=== PATIENT | female | born 1965 | race Caucasian/White ===

== ENCOUNTER 2025-07-13 08:32 | Emergency (ER) | payer MEDICAID ==
[~2025-07-13] VITALS: Ht 157.5 cm; Wt 92.2 kg
[2025-07-13 08:50] VITALS: TEMP 97.9
[2025-07-13 09:47] LABS: MEAN PLATELET VOLUME 9.0 FL (7.4-10.4); RED CELL DISTRIBUTION WIDTH 13.7 % (11.5-14.5)
[2025-07-13 09:56] LABS: LEUKOCYTE ESTERASE ,URINE TRACE (Neg); NITRITES, URINE NEGATIVE (Neg); OCCULT BLOOD,URINE LARGE (Neg)
[2025-07-13 10:06] LABS: UA COLLECTION TYPE CLN CATCH MIDSTREAM
[2025-07-13 10:09] LABS: MUCUS STRANDS FEW /LPF (Neg); SQUAMOUS EPITHELIAL CELL,UR MODERATE /LPF (FEW)
[2025-07-13 10:12] LABS: CREATININE 0.92 MG/DL (0.40-0.90); TOTAL CARBON DIOXIDE 24.4 MMOL/L (24-32); eCRCL 51 ML/MIN; eGFR 62 ML/MIN
--- NOTE | 2025-07-13 10:30 | Physician Documentation ---
History of Present Illness General Chief Complaint: Flank Pain Stated Complaint: MULTIPLE MED COMPLAINTS Time Seen by MD: 10:15 Primary Medical Doctor: none Mode of Arrival: POV History of Present Illness Initial Comments The patient is a 59-year-old female with no significant past medical history who woke up this morning with severe left flank pain. She vomited once (blood- tinged). At this time the pain has improved spontaneously. No recent history of UTIs. Medication Reconciliation Allergies: Coded Allergies: No Known Allergies (Unverified , 07/13/25) Review of Systems ROS Constitutional: Denies chills, fatigue, fever, weight gain or weight loss. HEENT: Denies hearing loss, sinus pressure or visual changes. Respiratory: Denies cough, shortness of breath or wheezing. Cardiovascular: Denies chest pain, pain while walking (claudication), edema or palpitations. Gastrointestinal: Denies abdominal pain, blood in stool, constipation, diarrhea, heartburn, loss of appetite, nausea or vomiting. Genitourinary: Left flank pain. Metabolic/Endocrine: Denies cold intolerance, heat intolerance, excessive thirst (polydipsia) or excessive hunger (polyphagia). Neurological: Denies dizziness, extremity numbness, extremity weakness, headaches, seizures or tremors. Psychiatric: Denies anxiety or depression. Integumentary: Denies breast discharge, breast lump, hives, mole change(s), rash or skin lesion. Musculoskeletal: Denies back pain, joint pain, joint swelling or neck pain. Hematologic: Denies easily bleeding, easily bruises, lymphedema or issues with blood clots. Immunologic: Denies food allergies or seasonal allergies. Physical Exam Physical Exam Vital Signs: Temperature: 97.9, Source: Temporal, Heart Rate: 85, Respiratory Rate: 22, BP: 126/71, Pulse Oximetry: 99, Weight: 92.200 Oxygen Flow Rate: 0 Physical Exam Physical Exam Vitals and nursing note reviewed. Constitutional: General: Patient is awake, alert, oriented x 4 in no acute distress and well appearing. Speech is clear and lucid. Appearance: Normal appearance. Patient is not ill-appearing, toxic-appearing or diaphoretic. HENT: Head: Normocephalic and atraumatic. Mouth/Throat: Mouth: Mucous membranes are moist. Pharynx: Oropharynx is clear. Eyes: General: No scleral icterus. Extraocular Movements: Extraocular movements intact. Pupils: Pupils are equal, round, and reactive to light. Neck: Supple, no Kernig or Brudzinski sign. Cardiovascular: Rate and Rhythm: Normal rate and regular rhythm. Heart sounds: No murmur heard. Pulmonary: Effort: No respiratory distress. Breath sounds: No wheezing, rhonchi or rales. Abdominal: General: There is no distension. Palpations: There is no fluid wave, hepatomegaly or mass. Tenderness: There is no abdominal tenderness. There is no guarding. Musculoskeletal: General: No swelling or deformity. Skin: Coloration: Skin is not jaundiced. Findings: No erythema or rash. Neurological: Mental Status: Patient is alert. Progress Results/Orders Results/Orders Orders - RASHI MAHAN MD Cult Urine + [place] Ct (07/13/25 10:11) Ct Abdomen Pelvis (07/13/25 10:41) Completed Orders - RASHI MAHAN MD Cbc/Diff (07/13/25 08:53) Lipase (07/13/25 08:53) CMP (07/13/25 08:53) Ua W/Microscopic, Cult If Ind (07/13/25 09:44) Ct Abdomen Pelvis (07/13/25 10:41) Vital Signs 07/13/25 07/13/25 07/13/25 07/13/25 08:50 09:10 10:51 12:55 Temp 97.9 Pulse 85 77 78 Resp 22 16 16 B/P (MAP) 126/71 128/80 (96) 124/79 (94) Pulse Ox 99 96 97 O2 Flow Rate 0 0 0 Laboratory Tests Test 07/13/25 09:16 07/13/25 09:44 White Blood Count 10.5 Red Blood Count 4.76 Hemoglobin 14.6 Hematocrit 43.2 Mean Corpuscular Volume 90.9 Mean Corpuscular Hemoglobin 30.6 Mean Corpuscular Hemoglobin Concent 33.7 Red Cell Distribution Width 13.7 Platelet Count 313 Mean Platelet Volume 9.0 Neutrophils (%) (Auto) 78.3 H Lymphocytes (%) (Auto) 17.1 L Monocytes (%) (Auto) 3.6 Eosinophils (%) (Auto) 0.7 Basophils (%) (Auto) 0.3 Neutrophils # (Auto) 8.2 H Lymphocytes # (Auto) 1.8 Monocytes # (Auto) 0.4 Eosinophils # (Auto) 0.1 Basophils # (Auto) 0.0 CBC Comment Sodium Level 143 Potassium Level 3.7 Chloride Level 106 Carbon Dioxide Level 24.4 Anion Gap 13 Blood Urea Nitrogen 14 Creatinine 0.92 H Estimated GFR/1.73 m2 62 BUN/Creatinine Ratio 15.2 Glucose Level 135 H Calcium Level 9.4 Total Bilirubin 0.5 Aspartate Amino Transf (AST/SGOT) 41 H Alanine Aminotransferase (ALT/SGPT) 66 Alkaline Phosphatase 89 Total Protein 7.7 Albumin 3.6 Globulin 4.1 Albumin/Globulin Ratio 0.9 L Lipase 52 Chemistry Comments Urine Specimen Description Cln catch midstream Urine Color Dark yellow Urine Clarity Cloudy Urine pH 7.0 Urine Specific [place] Part 1.025 Urine Protein 100 H Urine Glucose (UA) Negative Urine Ketones Trace H Urine Occult Blood Large H Urine Nitrite Negative Urine Bilirubin Small Urine Urobilinogen 0.2 Urine Leukocyte Esterase Trace H Urine RBC Tntc Urine WBC 5-10 H Urine Squamous Epithelial Cells Moderate Urine Transitional Epithelial Cells Few Urine Bacteria 2+ Urine Mucus Few Urine Culture Indicated Indicated Volume Urine Centrifuged 10 ml Urine Comment Microbiology Date/Time Source Procedure Growth Status 07/13/25 10:11 Urine Clean Catch Midstream Urine Culture - Preliminary Culture received. Resulted Medical Decision Making Findings This 59-year-old female presented with left-sided flank pain. CT scan shows a 5 mm proximal ureteric stone. I did talk with our urologist on-call, Dr. Jesus (at 1:15 p.m.) any asked me to discharge the patient with follow-up in the urology clinic. Prescribing analgesics. Departure Disposition: HOME / SELF CARE / HOMELESS Impression: Primary Impression: Ureterolithiasis Referrals: PARK JESUS MD Prescriptions Oxycodone HCl/Acetaminophen (Percocet 5-325 mg Tablet) 5 Mg-325 Mg Tablet 1 TABLET PO Q4H PRN for pain, #15 TABLET Prov: RASHI MAHAN MD 07/13/25 ONDANSETRON ODT 4mg tablet (ONDANSETRON ODT) 4 Mg Tab.rapdis 1 TAB PO Q6H PRN PRN for nausea/vomiting for 4 Days, #16 TAB 0 Refills Prov: RASHI MAHAN MD 07/13/25 Signature Scribe Signature: . Attestation: . RASHI MAHAN MD Jul 13, 2025 10:30
--- NOTE | 2025-07-13 11:29 | RADIOLOGY REPORT ---
Indication: Stone study Technique: CT axial images of the abdomen and pelvis are obtained without contrast. Coronal and sagittal reformats were obtained. Radiation Dose Information: CTDI volume is 30 mGy. Dose-length product is 1495 mGy*cm Comparison: None FINDINGS: There is limited interpretation of the abdomen and pelvis without administration of intravenous contrast. Lung bases demonstrate atelectasis Adrenal glands, spleen, pancreas unremarkable in shape. Hepatic steatosis gallbladder contracted. The right kidney demonstrates no hydronephrosis/nephrolithiasis. The left kidney demonstrates mild hydroureteronephrosis secondary to a proximal left ureteral calculus measuring 5 mm. Small hiatal hernia. Stomach is partially distended. Duodenal diverticulum. Small bowel loops are normal in caliber. Colonic diverticular disease. Moderate volume stool in the colon. Normal appendix. Bladder partially distended. No free pelvic fluid. No inguinal lymphadenopathy. Zaza-ws-gdmieity thoracolumbar degenerative disc disease IMPRESSION: Limited evaluation without contrast. Tmee-tj-soprjnme hydroureteronephrosis secondary to a proximal ureteral calculus measuring 5 mm. Colonic diverticular disease. Hepatic steatosis. Hiatal hernia. Other findings as described
[2025-07-13] MEDS ORDERED: ONDA-243 PO (13:25)
[2025-07-13] MEDS ORDERED: OXYC-145 PO (13:25)
[2025-07-13] MEDS: ketorolac trometh 30MG/ML vial 30 MG/ML VIAL IV ONE (13:53)
[2025-07-13 14:02] VITALS: BP 150/93; PULSE 73; RESP 16; O2SAT 97
== END 2025-07-13 14:04 | disposition home or self-care (01) ==
LOC: ER 08:33
DX: N20.1 Calculus of ureter (principal)
CPT/HCPCS: 36415; 74176; 80053; 81001; 83690; 85025; 87088; 96374; 99285; J1885

== ENCOUNTER 2025-07-25 11:44 | Emergency (ER) | payer MEDICAID ==
[~2025-07-25] VITALS: Ht 157.5 cm; Wt 90.5 kg
[~2025-07-25 11:44] MED LIST: ONDA-243 PO; OXYC-145 PO
[2025-07-25] MEDS ORDERED: ondansetron/PF 4mg/2ml inj IM ONE (12:15)
[2025-07-25] MEDS: normal saline 1000ML IV soln IVB ONE (12:26)
[2025-07-25] MEDS: ondansetron/PF 4mg/2ml inj IV ONE (12:34)
[2025-07-25 12:35] LABS: MEAN PLATELET VOLUME 8.4 FL (7.4-10.4); RED CELL DISTRIBUTION WIDTH 13.6 % (11.5-14.5)
--- NOTE | 2025-07-25 12:35 | Physician Documentation ---
History of Present Illness Chief Complaint: Abdominal Pain w/vomiting Stated Complaint: ABD PAIN/VOMITING Time Seen by : 12:04 OK to notify your PCP?: Yes Primary Medical Doctor: none Mode of Arrival: POV HPI 59-year-old female patient with a significant past medical history who was here on 13 July and diagnosis and treated as renal colic after the CT scan found left renal calculus about 5 mm proximal. She was treated with pain medications. Her UA showed WBC 5 to 10 but it was not treated with antibiotics at that time. She then went to [place] [facility] on 20 of July for the same and a lso with a concern of sepsis and is turned out to be no sepsis. Pain is in the suprapubic area in the lower abdomen. She has been not able to eat good and she cut down amount of food. She also had quite a bit of nausea. Her urine output is diminished. She also taking Colace yesterday and this morning because of constipation. Her mother passed because of urosepsis at the age of 88 and the patient is highly aware of sepsis. Medication Reconciliation Allergies: Coded Allergies: No Known Allergies (Unverified , 07/25/25) Scheduled Levofloxacin (Levofloxacin), 1 TAB PO DAILY Scheduled PRN ONDANSETRON ODT 4mg tablet (Ondansetron Odt), 1 TAB PO Q6H PRN PRN for nausea/vomiting Oxycodone HCl/Acetaminophen (Percocet 5-325 mg Tablet), 1 TABLET PO Q4H PRN for pain Physical Exam Vital Signs: Temperature: 97.6, Source: Temporal, Heart Rate: 97, Respiratory Rate: 16, BP: 117/79, Pulse Oximetry: 97, Weight: 90.500 Oxygen Flow Rate: 0 Progress Results/Orders Results/Orders Orders - ABELARDO BRYAN MD Cbc/Diff (07/25/25 12:14) Lipase (07/25/25 12:14) Urinalysis, Cult If Indicated (07/25/25 12:14) Pt Inr (07/25/25 12:14) Monitor (07/25/25 12:14) Saline Lock (07/25/25 12:14) BMP (07/25/25 12:14) CMP (07/25/25 12:14) Culture Blood (07/25/25 12:27) Procalcitonin (07/25/25 12:27) Lacticsepsis (07/25/25 12:27) Completed Orders - ABELARDO BRYAN MD Ondansetron Inj. (Zofran 4mg/2ml Vial) (07/25/25 12:15) Normal Saline 1000ml (0.9% Sodium Chlori (07/25/25 12:15) Ondansetron Inj. (Zofran 4mg/2ml Vial) (07/25/25 12:30) Medications Received in ER Medications (Trade) Dose Ordered Sig/Lacie Route PRN Reason Start Time Stop Time Status Last Admin Dose Admin (0.9% sodium chloride (NS) 1000ml IV soln) 1,000 ml ONCE ONCE IVB 07/25/25 12:15 07/25/25 12:17 DC 07/25/25 12:26 1,000 ML Vital Signs 07/25/25 07/25/25 07/25/25 11:50 12:07 12:09 Temp 97.6 Pulse 89 97 Resp 19 20 16 B/P (MAP) 125/81 117/79 (92) Pulse Ox 96 97 O2 Flow Rate 0 Laboratory Tests Test 07/25/25 12:24 CBC Comment Coagulation Comments Urine Comment Chemistry Comments Medical Decision Making Findings ER Course/Med. Decision Making REVIEW of RECORD(S): Previous medical records here and/or external medical records, such as that provided directly by the patient, by EMS and/or outside medical facilities, if available, were reviewed. COMORBIDITIES none MDM During the physical examination, the findings suggestive of acute life- threatening condition such as JVD, tracheal deviation, acidotic breathing, noisy stridorous breath sounds, pulses paradoxus, muffled heart sounds, unequal breath sounds, abdominal rigidity and rebound tenderness, focal neurological deficits, cool clammy skin, severe hypotension, severe tachycardia or bradycardia are absent. Patient presenting for concern for the urosepsis. Vital signs reviewed. Patient is hemodynamically stable and does not meet SIRS criteria. Patient appears nontoxic on exam. Physical examination is unremarkable. CBC CMP are well within normal range. Lactic acid is normal. UA showed WBC [address] scan of the abdomen and pelvis without contrast shows no hydronephrosis no urinary calculi. The patient was given levofloxacin 500 mg IV piggyback and now we will be discharged from the emergency room with UTI. TREATMENT/DISPOSITION: The patient's presentation is most consistent with acute urinary tract infection Prior to discharge I independently reviewed the patients past medical history, clinical risk factors, comorbidities, and social determinants of health and diagnostic studies. The patient appears to be a safe discharge home with close outpatient PCP follow-up I had extensive discussion with patient regarding management, disposition and follow up. Potential symptom etiology was discussed, and shared decision making occurred. They will return immediately if symptoms worsen, do not improve, or they have any further concerns. Prior to discharge all questions were addressed. The patient is aware that the purpose of this visit was to screen for an acute medical emergency requiring emergent stabilization. Chronic and occult conditions, including malignancies, have not been ruled out. If patient is unable to arrange follow-up as stated in the discharge instructions and further discussed with the patient directly, or their symptoms worsen/become more concerning, they are to return to the ER for reassessment immediately. Prior to leaving the department, the patient has a plan for discharge, has decision making capacity, and acknowledges an understanding of the verbal and written discharge instructions. SOCIAL DETERMINANTS: Patient demonstrates no obvious challenges to following up as an outpatient although did consider whether patient had any barriers to access care including homelessness, Food insecurity, Mental health, Substance abuse, Disabilities, Limited access to medical care, Difficulty finding transport, Insurance issues, Refusal of care or testing due to cost concerns. MEDICAL SCREENING: I have discussed with the patient the non-definitive nature of the emergency screening exam, diagnosis and the possibility of a variety of conditions which may present in atypically benign fashion and stressed the importance of close follow-up for definitive diagnosis and treatment. We discussed signs and symptoms that should be watched for which might indicate a more serious or new condition that would benefit from emergency reevaluation and the patient has verbalized understanding to this and my other detailed discharge instructions and promises compliance. I have referred him back to his primary p hysician of course for a more detailed evaluation and more definitive diagnoses. DISCLAIMER: Inadvertent spelling and grammatical errors are likely due to EMR/dictation software use and do not reflect on the overall quality of patient care. Note that the electronic time recorded on this note does not necessarily reflect the actual time of the patient encounter. Differential Dx:Considerations: Include: Angina/DC, Bowel obstruction, Cholangitis, Constipation, Diverticular disease, Gastritis/PUD, Hernia, Inflammatory BD, Ischemic bowel, Pancreatitis, Urinary obstruction, Urinary tract infection, Urolithiasis Departure Disposition: 01 HOME / SELF CARE / HOMELESS Impression: Primary Impression: Acute urinary tract infection Discharge Instructions: Urinary Tract Infection, Adult Additional Instructions: Thank you for coming to our Emergency Department today. Please stop taking tamsulosin. Which is also Flomax. Push fluids. Please ask your nurse or provider if you have questions about your care today and do not leave until all your questions have been answered. Please use any medications given as directed and follow-up with your doctor (or the doctor you were referred to) in the next 1-3 days. Your primary care doctor can help to coordinate outpatient specialty care and provide authorization for specialty referral as needed. If you do not have a primary care doctor you may follow up at a [facility]. You may also use motrin and tylenol as needed for fever and/or pain unless instructed otherwise by your provider or nurse. Indications for more urgent follow-up have been discussed, but you may return to the Emergency Department at ANY time for any worrisome or worsening symptoms. County Facilities: [facility] Facilities: [facility]: [facility] [place] Address:[address] [place] [address] [facility]: [place] Address:[address] [place] [address] [facility] Address:[address] [place] [address] [facility] Address:[address] [place] [address] Registration Billing Pharmacy Referrals [facility] Address:[address] [place] [address] Referrals: NO PRIMARY CARE PROVIDER (PCP) Prescriptions Levofloxacin (Levofloxacin) 500 Mg Tablet 1 TAB PO DAILY for 3 Days, #10 TAB Prov: ABELARDO BRYAN MD 07/25/25 Signature Scribe Signature: None Attestation: My dictation ABELARDO BRYAN MD Jul 25, 2025 12:35
[2025-07-25 12:37] LABS: LEUKOCYTE ESTERASE ,URINE NEGATIVE (Neg); NITRITES, URINE NEGATIVE (Neg); OCCULT BLOOD,URINE TRACE-INTACT (Neg)
[2025-07-25 12:44] LABS: UA COLLECTION TYPE CLN CATCH MIDSTREAM
[2025-07-25 12:46] LABS: SQUAMOUS EPITHELIAL CELL,UR MODERATE /LPF (FEW)
[2025-07-25 12:47] LABS: INR 1.0 INR
[2025-07-25 12:48] LABS: MUCUS STRANDS FEW /LPF (Neg)
[2025-07-25 12:51] LABS: CREATININE 0.94 MG/DL (0.40-0.90); TOTAL CARBON DIOXIDE 24.0 MMOL/L (24-32); eCRCL 50 ML/MIN; eGFR 61 ML/MIN
[2025-07-25 13:00] VITALS: TEMP 98.2
[2025-07-25] MEDS: levoFLOXACIN-Levaquin 500mg/D5 100 ML IV ONE (14:37)
[2025-07-25] MEDS: normal saline 1000ml 1,000 ML IV ONE (14:37)
[2025-07-25] MEDS ORDERED: iohexol 300mg/ml 100ml inj. ONE (14:48)
--- NOTE | 2025-07-25 15:13 | ELECTROCARDIOGRAPH REPORT ---
[facility] Test Date: 2025-07-25 Test Time: 12:18:08 Pat Name: DESTINEY LENTZ Department: EMERGENCY ROOM [id number] Room: Gender: F Office Services Clerk: LIDIA : [id number] Requested By: ABELARDO BRYAN Order Number: [id number] Reading MD: Dr. Darrius Pope Measurements Intervals [place] Rate: 81 P: 41 ND: 141 QRS: -21 QRSD: 93 T: 57 QT: 358 QTc: 416 Interpretive Statements Sinus rhythm Ventricular premature complex Borderline left axis deviation Low voltage, precordial leads Borderline T abnormalities, anterior leads Electronically Signed On 07-26-2025 21:40:[address] Darrius Pope Please click the below link to view image of tracing.
--- NOTE | 2025-07-25 15:31 | RADIOLOGY REPORT ---
Exam: CT CT ABDOMEN PELVIS History: Abdominal pain Comparison Study: CT CT ABDOMEN PELVIS on DOS: 07/13/25 TECHNIQUE: Multidetector CT of the abdomen pelvis with IV contrast. Axial, coronal and sagittal multiplanar reformats were obtained from the axial data set by the technologist. Radiation Dose Information: CT Dose: CTDI volume is 27.89 mGy. Dose-length product is 1390.42 mGy*cm FINDINGS: Bibasilar atelectasis. Partially visualized heart is unremarkable. 1.4 cm left hepatic lobe cyst. Mild hepatic steatosis. Spleen, gallbladder, pancreas and adrenal glands are unremarkable. Subcentimeter hypodense bilateral renal lesions that are too small to characterize. The previously noted 5 mm obstructing left proximal ureteral calculus is noted within the distal left ureter with minimal adjacent fat stranding but without significant hydro nephrosis. Otherwise, kidneys, ureters and urinary bladder unremarkable. Uterus is unremarkable. 5 cm right ovarian dominant follicle/ cyst with 2.1 cm left ovarian cyst. Nonspecific air within the vagina. Moderate size hiatal hernia. Mild wall thickening of the herniated and distal stomach with mild Wall thickening of Proximal Small bowel loops. The remainder of the small bowel loops unremarkable. Appendix is unremarkable. Descending colon and sigmoid diverticulosis without diverticulitis. No evidence of intraperitoneal free air or fluid. No evidence of aortic aneurysm or dissection. No significant lymphadenopathy. Soft tissues are unremarkable. No evidence of acute osseous abnormalities. Sclerotic foci within T12, L3 and L5 vertebral bodies which may represent small bone islands. IMPRESSION: The previously noted 5 mm obstructing left proximal ureteral calculus is noted within the distal left ureter with minimal adjacent fat stranding but without significant hydro nephrosis. Moderate size hiatal hernia. Gastroenteritis. Subcentimeter hypodense bilateral renal lesions that are too small to characterize. Colonic diverticulosis without diverticulitis.
[2025-07-25] MEDS ORDERED: LEVO-65 PO (16:22)
[2025-07-25 16:39] VITALS: BP 114/75; PULSE 82; RESP 18; O2SAT 97
== END 2025-07-25 16:44 | disposition home or self-care (01) ==
LOC: ER 11:45
DX: N39.0 Urinary tract infection, site not specified (principal); Z87.442 Personal history of urinary calculi
CPT/HCPCS: 36415; 74177; 80053; 81001; 83605; 83690; 84145; 85025; 85610; 87040; 87088; 93005; 96361; 96365; 96375; 99285; J1956; J2405; J7030; Q9967

== ENCOUNTER 2025-08-15 17:56 | Emergency (ER) | payer MEDICAID ==
[~2025-08-15] VITALS: Ht 157.5 cm; Wt 84.5 kg
[2025-08-15 18:54] LABS: MEAN PLATELET VOLUME 8.9 FL (7.4-10.4); RED CELL DISTRIBUTION WIDTH 13.7 % (11.5-14.5)
--- NOTE | 2025-08-15 19:08 | Physician Documentation ---
History of Present Illness Chief Complaint: Flank Pain Stated Complaint: GROIN/BACK PAIN Primary Medical Doctor: none HPI This is a 59-year-old female who presents with left flank pain radiating to left pelvis, patient reports history of treatments for UTI and kidney stone in the [place]. Patient reports no fever. States this feels like a kidney stone Medication Reconciliation Allergies: Coded Allergies: No Known Allergies (Unverified , 08/15/25) Scheduled PRN ONDANSETRON ODT 4mg tablet (Ondansetron Odt), 1 TAB PO Q6H PRN PRN for nausea/vomiting Oxycodone HCl/Acetaminophen (Percocet 5-325 mg Tablet), 1 TABLET PO Q4H PRN for pain Past Medical History Past Medical History: Kidney Stones, UTI Review of Systems ROS As stated above in the HPI, otherwise all systems are reviewed and negative. Physical Exam Vital Signs: Temperature: 97.9, Source: Temporal, Heart Rate: 99, Respiratory Rate: 18, BP: 138/84, Pulse Oximetry: 97, Weight: 84.550 Physical Exam VITALS: Reviewed and as above. GENERAL: Alert, nontoxic appearing, no apparent distress. HEENT: RESPIRATORY: No increased work of breathing, no respiratory distress, speaking in full clear sentences CHEST: CV: BACK: GI: MUSCULOSKELETAL: SKIN: NEURO: PSYCH: Progress Progress Note Reviewed old records of CT scans which show patient has 5 mm kidney stone that had moved from proximal to distal and no urinary tract infections. Results/Orders Results/Orders Vital Signs 08/15/25 17:59 Temp 97.9 Pulse 99 Resp 18 B/P (MAP) 138/84 Pulse Ox 97 Laboratory Tests Test 08/15/25 18:16 White Blood Count 9.3 Red Blood Count 4.59 Hemoglobin 14.0 Hematocrit 41.5 Mean Corpuscular Volume 90.4 Mean Corpuscular Hemoglobin 30.5 Mean Corpuscular Hemoglobin Concent 33.7 Red Cell Distribution Width 13.7 Platelet Count 333 Mean Platelet Volume 8.9 Neutrophils (%) (Auto) 66.5 Lymphocytes (%) (Auto) 24.7 Monocytes (%) (Auto) 6.3 Eosinophils (%) (Auto) 2.1 Basophils (%) (Auto) 0.4 Neutrophils # (Auto) 6.2 Lymphocytes # (Auto) 2.3 Monocytes # (Auto) 0.6 Eosinophils # (Auto) 0.2 Basophils # (Auto) 0.0 CBC Comment Chemistry Comments Medical Decision Making Additional information obtaine: old records Findings Patient presents to the emergency room with left flank pain that has per HPI. Differentials include but are not limited to aortic pathology kidney stone pyelonephritis musculoskeletal pain intra-abdominal infection therefore emergent labs ordered which were reassuring. Noted hematuria and patient states this feels exactly like kidney stone. She is responding to therapy. No evidence of urinary tract infection, no evidence of acute kidney injury and patient's pain is controlled. After discussing the risks and benefits of CT scan we are electing for conservative management with presumed kidney stone and we will treat as such. She already has a referral to Dr. Jesus and I will give her this information as she does have documented 5 mm stone continues to give her problems. Differential Dx:Considerations: -Incomplete, -Threatened, Gastroenteritis Departure Disposition: HOME / SELF CARE / HOMELESS Impression: Primary Impression: Kidney stone Condition: Improved Discharge Instructions: Kidney Stones Additional Instructions: Call Dr. Jesus in the morning in regards to falling up your 5 mm stone Referrals: NO PRIMARY CARE PROVIDER (PCP) PARK JESUS MD Prescriptions Ondansetron 8mg ODT (Ondansetron Odt) 8 Mg Tab.rapdis 1 TAB PO Q6H for nausea/vomiting for 3 Days, #12 TAB 0 Refills Prov: DAVID NICOLE MD 08/15/25 Hydrocodone Bit/Acetaminophen 5/325 MG ([place] 5/325 MG) 5 Mg/325 Mg Tablet 1-2 TAB PO Q4-6 hours PRN for pain, #20 TAB Prov: DAVID NICOLE MD 08/15/25 Signature Scribe Signature: No scribe Attestation: The note accurately reflects work and decisions made by me.David Nicole MD 08/15/25 22:50 SERJIO TIRADO Aug 15, 2025 19:08 DAVID NICOLE MD Aug 15, 2025 20:54
[2025-08-15 19:17] LABS: CREATININE 0.92 MG/DL (0.40-0.90); TOTAL CARBON DIOXIDE 27.5 MMOL/L (24-32); eCRCL 51 ML/MIN; eGFR 62 ML/MIN
[2025-08-15] MEDS: ketorolac trometh 15mg/ml vial 15 MG/ML ML IV ONE (21:22)
[2025-08-15] MEDS: ondansetron/PF 4mg/2ml inj IV ONE (21:22)
[2025-08-15] MEDS: acetaminophen 1,000mg/100ml IV 100 ML IV ONE (21:24)
[2025-08-15] MEDS: normal saline 1000ml 1,000 ML IV ONE (21:27)
[2025-08-15 21:43] LABS: LEUKOCYTE ESTERASE ,URINE NEGATIVE (Neg); NITRITES, URINE NEGATIVE (Neg); OCCULT BLOOD,URINE SMALL (Neg)
[2025-08-15 21:51] LABS: UA COLLECTION TYPE NON-SPECIFIED
[2025-08-15 21:53] LABS: SQUAMOUS EPITHELIAL CELL,UR MODERATE /LPF (FEW)
[2025-08-15] MEDS ORDERED: HYDR-3965 PO (22:50)
[2025-08-15] MEDS ORDERED: ONDA-245 PO (22:50)
[2025-08-15] MEDS: oxyCODONE IR 5mg (immed. release) tablet PO ONE (23:04)
[2025-08-15 23:09] VITALS: BP 140/86; PULSE 71; RESP 16; TEMP 97.9; O2SAT 96
== END 2025-08-15 23:11 | disposition home or self-care (01) ==
LOC: ER 17:56
DX: N20.0 Calculus of kidney (principal); Z87.442 Personal history of urinary calculi; Z87.440 Personal history of urinary (tract) infections
CPT/HCPCS: 36415; 80053; 81001; 82150; 83690; 85025; 96361; 96374; 96375; 99284; J0131; J1885; J2405; J7030